=== PATIENT | male | born 1960 | race Caucasian/White ===

== ENCOUNTER → 2017-08-31 | Day surgery (SDC) | payer OTHER ==
[2017-08-29 09:35] LABS: HEMOGLOBIN 14.1 g/dL (14.0-18.0)
[2017-08-29 09:54] LABS: ANION GAP 14.2 mmol/L (8-16); BLOOD UREA NITROGEN 6 mg/dL (7-26); BUN/CREATININE RATIO 8 (6-25); CALCIUM 9.5 mg/dL (8.4-10.2); CARBON DIOXIDE 26 mmol/L (22-29); CHLORIDE 91 mmol/L (98-107); CREATININE, SERUM 0.71 mg/dL (0.72-1.25); EST GLOMERULAR FILTRATION RATE > 60 ML/MIN (60-); GLUCOSE 78 mg/dL (74-118); POTASSIUM 4.2 mmol/L (3.5-5.1); SODIUM 127 mmol/L (136-145)
[~2017-08-31] MED LIST: BALANCED SALT SOLN (OPTH) 15 ML BTL IO ONE; BUPIVACAINE HC 0.75% PF 10ML VIAL INJ ONE; CHONDR SU A NA/HYALUR SOD 1 EACH KIT IO ONE; CYCLOPENTOLATE HCL 2% OPTH SOLN 2 ML BTL OP ONE; EPINEPHRINE HCL INJ 1 MG/ML AMP ONE; FENTANYL CITRATE/PF 100MCG/2 ML INJ ONE; GATIFLOXACIN(OPTH) 5 ML LIQD ONE; LIDOCAINE 2% /EPINEPHRINE 20 ML SDV INJ ONE; LIDOCAINE HCL-PF 4% 40 MG/1 ML 5ML AMP ONE; MIDAZOLAM HCL 2 MG/2 ML VIAL ONE; PHENYLEPHRINE HCL 2 ML DROPS ONE; PILOCARPINE HCL(OPTH) 15 ML LIQD ONE; POVIDONE IODINE 5% (OPTH) 30 ML BTL ONE; PROPOFOL IV EMULSION 10 MG/ML 20 ML VIAL ONE; TOBRAMYCIN/DEXAMETHASONE(OPTH) 3.5 GM TUBE ONE; ULTRAM50 MG PO
[2017-08-31 08:21] LABS: ANION GAP 19.1 mmol/L (8-16); BLOOD UREA NITROGEN 5 mg/dL (7-26); BUN/CREATININE RATIO 6 (6-25); CARBON DIOXIDE 22 mmol/L (22-29); CHLORIDE 89 mmol/L (98-107); CREATININE, SERUM 0.82 mg/dL (0.72-1.25); EST GLOMERULAR FILTRATION RATE > 60 ML/MIN (60-); POTASSIUM 4.1 mmol/L (3.5-5.1); SODIUM 126 mmol/L (136-145)
[2017-08-31 08:22] LABS: CALCIUM 10.2 mg/dL (8.4-10.2); GLUCOSE 95 mg/dL (74-118)
== END | disposition home or self-care (01) ==
LOC: OR 05:55
PROVIDERS: ATTEND Ophthalmology
DX: H25.11 Age-related nuclear cataract, right eye (principal); I10 Essential (primary) hypertension; G89.29 Other chronic pain; F17.210 Nicotine dependence, cigarettes, uncomplicated; Z01.810 Encounter for preprocedural cardiovascular examination; Z01.812 Encounter for preprocedural laboratory examination
CPT/HCPCS: 36415 ×2; 66982; 80048 ×2; 85014; 85018; 93005; J0171; J2001; J2250

== ENCOUNTER → 2018-02-08 | Day surgery (SDC) | payer OTHER ==
[2018-02-06 09:26] LABS: HEMATOCRIT 39.9 % (38.2-49.6)
[2018-02-06 09:50] LABS: BLOOD UREA NITROGEN 5 mg/dL (7-26); BUN/CREATININE RATIO 7 (6-25); CALCIUM 8.9 mg/dL (8.4-10.2); CARBON DIOXIDE 26 mmol/L (22-29); CHLORIDE 94 mmol/L (98-107); EST GLOMERULAR FILTRATION RATE > 60 ML/MIN (60-); GLUCOSE 92 mg/dL (74-118); SODIUM 129 mmol/L (136-145)
[~2018-02-08] MED LIST changes: -BUPIVACAINE HC 0.75% PF 10ML VIAL INJ ONE; -FENTANYL CITRATE/PF 100MCG/2 ML INJ ONE; +LIDOCAINE HCL 2% LOCAL INJ 5 ML SDV VIAL INJ ONE; -MIDAZOLAM HCL 2 MG/2 ML VIAL ONE
--- OUTSIDE RECORDS SUMMARY | 2018-02-08 07:20 | XMS REPORT | Encounter Summary ---
Author Organization Unknown Address [address] [place] [id number] Phone [phone] Reason for Visit Medical Complaint Instructions 1. Influenza-like symptoms Tamiflu 75 mg capsule rapid flu (A+B) 2. Pain in throat sore throat: care instructions rapid strep group A, throat 3. Tachycardia 4. Elevated blood-pressure reading without diagnosis of hypertension Discussion Note: None recorded. Plan of Care Patient Instructions otc tylenol and ibuprofen for fever and body aches. increase fluids. follow up pcp Reminders Provider Appointments None recorded. Lab Rapid Flu (A+B) 03/23/2017 [facility] Rapid Strep Group a, Throat 03/23/2017 [facility] Referral None recorded. Procedures None recorded. Surgeries None recorded. Imaging None recorded. Medications Name Start Date Tamiflu 75 mg capsule Take 1 capsule twice a day by oral route for 5 days. tramadol 50 mg tablet TAKE 1 TABLET BY MOUTH AT BEDTIME NEEDED Medications Administered None recorded. Vitals Height Weight BMI Blood Pressure 5 ft 10 in 140 lbs 20.1 kg/m2 150/92 mm[Hg] Lab Results Date Name Specimen Result Interpretation Description Value Range Status Address Rapid Strep Group a, Throat Result negative [facility]: [address] [place] [address] Swab Location Left and Right tonsillar pillars [facility]: [address] [place] [address] Rapid Flu (A+B) Influenza a negative [facility]: [address] [place] [address] Influenza B negative [facility]: [address] [place] [address] Allergies Code Code System Name Reaction Severity Status Onset NKDA Problems None recorded. Procedures None recorded. Vaccine List None recorded. Social History Smoking Status Current Every Day Smoker Past Encounters 03/23/2017 Influenza-like Symptoms; Pain in Throat; Tachycardia; Elevated Blood-pressure Reading without Diagnosis of Hypertension ROSALINDA Adams-C: [address] [place] [address], Ph. History of Present Illness [id number]-[id number] Reported By: Patient HPI: Location: head/sinuses, throat, chest. Quality: sore throat, nasal/sinus congestion, dry cough. Duration: 1days. Severity: moderate. Onset/Timing: gradual. Context: no sick contacts, no foreign travel, non-smoker. Modifying factors: OTC medication. Associated Symptoms: no sputum production, no shortness of breath, no wheezing, no change in number of pillows needed to sleep at night, no sweats, no significant weight gain, no significant weight loss, no morning cough, no vomiting, no diarrhea, no rash, no nausea, no fever, no headache, sore throat, muscle aches Review of Systems:ROS as noted in the HPI Review of Systems Basic Reported By: Patient Physical Exam Adult Basic, Adult Male Complete Reported By: Patient Constitutional: General Appearance: healthy-appearing, well-nourished, well-developed Psychiatric: Mental Status: active and alert Eyes: Lids and Conjunctivae: non-injected, no discharge Icb-Sijc-Wsiqh-Throat: Ears: no lesions on external ear, no outer ear tenderness, TMs clear, TM mobility normal, EAC ceruminous. Nose: no lesions on external nose, nasal discharge--rhinorrhea; congestion. Lips, Teeth, and Gums: no mouth or lip ulcers. Oropharynx: moist mucous membranes, no erythema, no exudates, tonsils not enlarged Neck: Neck: trachea midline. Lymph Nodes: no cervical LAD Lungs: Respiratory effort: no dyspnea, no tachypnea, no use of accessory muscles, no intercostal retractions. Auscultation: breath sounds normal, good air movement Cardiovascular: Heart Auscultation: no murmurs, tachycardia Neurologic: Gait and Station: normal gait, normal station
--- OUTSIDE RECORDS SUMMARY | 2018-02-08 07:20 | XMS REPORT | Continuity of Care Document ---
Author Author [facility] Interface Address Unknown Phone Unavailable Problems Problem Status Onset Date Classification Date Reported Comments Source Influenza-like symptoms 03/23/2017 Diagnosis 03/23/2017 [facility] Pain in throat 03/23/2017 Diagnosis 03/23/2017 [facility] Tachycardia 03/23/2017 Diagnosis 03/23/2017 [facility] Elevated blood-pressure reading without diagnosis of hypertension 03/23/2017 Diagnosis 03/23/2017 [facility] Medications Medication Details Route Status Patient Instructions Ordering Provider Order Date Source Oseltamivir 75 MG Oral Capsule [Tamiflu] Tamiflu 75 mg capsule Take 1 capsule twice a day by oral route for 5 days. Active [facility] tramadol hydrochloride 50 MG Oral Tablet tramadol 50 mg tablet TAKE 1 TABLET BY MOUTH AT BEDTIME NEEDED Active [facility] Allergies, Adverse Reactions, Alerts Substance Category Reaction Severity Reaction type Status Date Reported Comments Source Immunizations Immunization Date Given Site Status Last Updated Comments Source Results Order Name Results Value Reference Range Date Interpretation Comments Source RESULT negative 03/23/2017 [facility] SWAB LOCATION Left and Right tonsillar pillars 03/23/2017 [facility] Influenza A negative 03/23/2017 [facility] Influenza B negative 03/23/2017 [facility] Vital Signs Vital Sign Value Date Comments Source Diastolic (mm Hg) 92 03/23/2017 [facility] Height 70 03/23/2017 [facility] Systolic (mm Hg) 150 03/23/2017 [facility] Weight 140 03/23/2017 [facility] Encounters Location Location Details Encounter Type Encounter Number Reason For Visit Attending Provider ADM Date DC Date Status Source [place] - [facility] - [id number]_BksbrjiuMarcel Dean, ROSALINDA-C: [address] [place] [address], Ph. [id number] David Dean 03/23/2017 [facility] Procedures Procedure Code Date Perfomer Comments Source
[2018-02-08 09:14] LABS: ANION GAP 15.4 mmol/L (8-16); BLOOD UREA NITROGEN < 5 mg/dL (7-26); CALCIUM 8.6 mg/dL (8.4-10.2); CARBON DIOXIDE 23 mmol/L (22-29); CHLORIDE 88 mmol/L (98-107); EST GLOMERULAR FILTRATION RATE > 60 ML/MIN (60-); GLUCOSE 95 mg/dL (74-118); POTASSIUM 3.4 mmol/L (3.5-5.1); SODIUM 123 mmol/L (136-145)
[2018-02-08 09:22] LABS: BUN/CREATININE RATIO 7 (6-25)
[2018-02-08 10:30] VITALS: BP 157/79
== END | disposition home or self-care (01) ==
LOC: OR 07:18
PROVIDERS: ATTEND Ophthalmology
DX: H25.12 Age-related nuclear cataract, left eye (principal); I10 Essential (primary) hypertension; M54.5 Low back pain; F17.210 Nicotine dependence, cigarettes, uncomplicated; Z01.810 Encounter for preprocedural cardiovascular examination; Z01.812 Encounter for preprocedural laboratory examination
CPT/HCPCS: 36415 ×2; 66984; 80048 ×2; 85014; 85018; 93005; J0171; J2001 ×2; J2704; V2632

== ENCOUNTER 2018-03-08 17:25 | Emergency (ER) | payer OTHER ==
[~2018-03-08] VITALS: Ht 175.3 cm; Wt 65.8 kg
[~2018-03-08 17:25] MED LIST changes: -BALANCED SALT SOLN (OPTH) 15 ML BTL IO ONE; -CHONDR SU A NA/HYALUR SOD 1 EACH KIT IO ONE; -CYCLOPENTOLATE HCL 2% OPTH SOLN 2 ML BTL OP ONE; -EPINEPHRINE HCL INJ 1 MG/ML AMP ONE; -GATIFLOXACIN(OPTH) 5 ML LIQD ONE; -LIDOCAINE 2% /EPINEPHRINE 20 ML SDV INJ ONE; -LIDOCAINE HCL 2% LOCAL INJ 5 ML SDV VIAL INJ ONE; -LIDOCAINE HCL-PF 4% 40 MG/1 ML 5ML AMP ONE; -PHENYLEPHRINE HCL 2 ML DROPS ONE; -PILOCARPINE HCL(OPTH) 15 ML LIQD ONE; -POVIDONE IODINE 5% (OPTH) 30 ML BTL ONE; -PROPOFOL IV EMULSION 10 MG/ML 20 ML VIAL ONE; -TOBRAMYCIN/DEXAMETHASONE(OPTH) 3.5 GM TUBE ONE
[2018-03-08 19:10] LABS: BASOPHILS # (AUTO) 0.1 (0.0-0.1); BASOPHILS % 1.4 % (0.0-1.0); EOSINOPHILS # (AUTO) 0.4 (0.0-0.4); EOSINOPHILS % 6.7 % (0.0-6.0); HEMATOCRIT 37.8 % (38.2-49.6); HEMOGLOBIN 13.5 g/dL (14.0-18.0); LYMPHOCYTES % 47.5 % (18.0-39.1); MEAN CORPUSCULAR HEMOGLOBIN 34.3 pg (28-32); MEAN CORPUSCULAR HGB CONC 35.7 g/dL (31-35); MEAN CORPUSCULAR VOLUME 95.9 fL (81-99); MONOCYTES # (AUTO) 0.8 (0.2-0.8); MONOCYTES % 11.9 % (4.4-11.3); NEUTROPHILS % 31.9 % (38.7-80.0); PLATELET COUNT 268 x10e3/uL (140-360); RED BLOOD COUNT 3.94 x10e6/uL (4.3-5.7); RED CELL DISTRIBUTION WIDTH 11.8 % (11.7-14.4)
[2018-03-08 19:19] LABS: ANION GAP 12.8 mmol/L (8-16); BLOOD UREA NITROGEN < 5 mg/dL (7-26); CALCIUM 9.4 mg/dL (8.4-10.2); CARBON DIOXIDE 26 mmol/L (22-29); CHLORIDE 89 mmol/L (98-107); CREATININE, SERUM 0.74 mg/dL (0.72-1.25); EST GLOMERULAR FILTRATION RATE > 60 ML/MIN (60-); GLUCOSE 87 mg/dL (74-118); POTASSIUM 3.8 mmol/L (3.5-5.1); SODIUM 124 mmol/L (136-145)
[2018-03-08 19:21] LABS: BUN/CREATININE RATIO 7 (6-25)
== END 2018-03-08 22:23 | disposition home or self-care (01) ==
LOC: ER 17:25
DX: E87.1 Hypo-osmolality and hyponatremia (principal); K52.9 Noninfective gastroenteritis and colitis, unspecified; G89.29 Other chronic pain; F17.210 Nicotine dependence, cigarettes, uncomplicated
CPT/HCPCS: 36415; 80048; 85025; 99282